=== PATIENT | male | born 1950 | race Caucasian/White ===

== ENCOUNTER 2018-04-05 11:09 | Day surgery (SDC) | payer MEDICARE, OTHER ==
[~2018-04-05] VITALS: Ht 165.1 cm; Wt 88.5 kg
[~2018-04-05 11:09] MED LIST: LISI20; NIFE30ER; OMEP20ER; SIMV40
== END 2018-04-05 13:40 | disposition home or self-care (01) ==
LOC: ORSCSDS 11:09
PROVIDERS: Surgery
PROC: 0DB58ZX Excision of Esophagus, Via Natural or Artificial Opening Endoscopic, Diagnostic (ICD-10-PCS; principal; 2018-04-05 13:00)
DX: K22.70 Barrett's esophagus without dysplasia (principal); K44.9 Diaphragmatic hernia without obstruction or gangrene; I10 Essential (primary) hypertension; E78.5 Hyperlipidemia, unspecified; F17.210 Nicotine dependence, cigarettes, uncomplicated; Z79.899 Other long term (current) drug therapy
CPT/HCPCS: 88305; J0330; J1980; J2405; J7120

== ENCOUNTER 2019-02-15 03:06 | Emergency (ER) | payer MEDICARE, OTHER ==
[~2019-02-15] VITALS: Ht 165.1 cm; Wt 91.6 kg
[2019-02-15] MEDS ORDERED: AZIT250 PO (03:28)
[2019-02-15] MEDS ORDERED: PRED5 PO (03:29)
[2019-02-15 04:11] LABS: BASOPHILS ABSOLUTE AUTO 0.02 K/mm3 (0.00-0.23); BASOPHILS PERCENT AUTO 0 % (0-2); EOSINOPHILS ABSOLUTE AUTO 0.11 K/mm3 (0.00-0.68); EOSINOPHILS PERCENT AUTO 1 % (0-6); Hematocrit 38.5 % (37.0-53.0); Hemoglobin 12.7 g/dL (13.5-17.5); IMMATURE GRAN ABSOLUTE AUTO 0.05 K/mm3 (0.00-0.10); IMMATURE GRAN PERCENT AUTO 0 % (0-1); LYMPHOCYTES ABSOLUTE AUTO 3.92 K/mm3 (0.84-5.20); LYMPHOCYTES PERCENT AUTO 31 % (21-46); MONOCYTES ABSOLUTE AUTO 1.31 K/mm3 (0.16-1.47); MONOCYTES PERCENT AUTO 11 % (4-13); Mean Platelet Volume 10.7 fL (9.1-12.4); NEUTROPHILS ABSOLUTE AUTO 7.07 K/mm3 (1.96-9.15); NEUTROPHILS PERCENT AUTO 57 % (41-73); Platelet Count 214 K/mm3 (150-400); RDW Coefficient Variation 13.4 % (11.7-14.2); RDW Standard Deviation 46.1 fL (35.1-46.3); White Blood Cell Count 12.48 K/mm3 (4.00-11.30)
[2019-02-15 04:15] LABS: Mean Corpuscular Volume 94 fL (80-100)
[2019-02-15 04:29] LABS: Albumin, Blood 3.6 g/dL (3.4-5.0); Bilirubin, Total 0.2 mg/dL (0.1-1.0); Bun/Creatinine Ratio 12.2 (12.0-20.0); Calcium, Blood 8.5 mg/dL (8.5-10.1); Creatinine, Blood 1.31 mg/dL (0.60-1.20); Globulin, Blood 3.5 g/dL (2.2-4.0); Potassium, Blood 4.5 mmol/L (3.5-5.5); Total Protein, Blood 7.1 g/dL (6.4-8.2)
[2019-02-15] MEDS ORDERED: CYCL10 PO (04:44)
[2019-02-15] MEDS ORDERED: BENZ100A PO (04:44)
== END 2019-02-15 05:10 | disposition home or self-care (01) ==
LOC: ER 03:06
PROVIDERS: Emergency Medicine
DX: S39.011A Strain of muscle, fascia and tendon of abdomen, initial encounter (principal); X58.XXXA Exposure to other specified factors, initial encounter; Z88.0 Allergy status to penicillin; Z88.8 Allergy status to other drugs, medicaments and biological substances; Z79.899 Other long term (current) drug therapy; F17.210 Nicotine dependence, cigarettes, uncomplicated
CPT/HCPCS: 36415; 71046; 80053; 83690; 85025; 96374; 96375; 99283-25; J1885; J3010

== ENCOUNTER 2019-04-15 02:44 | Emergency (ER) | payer MEDICARE, OTHER ==
[~2019-04-15] VITALS: Ht 165.1 cm; Wt 86.2 kg
[~2019-04-15 02:44] MED LIST changes: +AZIT250 PO; +BENZ100A PO; +CYCL10 PO; +PRED5 PO
[2019-04-15 03:29] LABS: BASOPHILS ABSOLUTE AUTO 0.03 K/mm3 (0.00-0.23); BASOPHILS PERCENT AUTO 0 % (0-2); EOSINOPHILS ABSOLUTE AUTO 0.31 K/mm3 (0.00-0.68); EOSINOPHILS PERCENT AUTO 4 % (0-6); Hemoglobin 12.3 g/dL (13.5-17.5); IMMATURE GRAN ABSOLUTE AUTO 0.02 K/mm3 (0.00-0.10); IMMATURE GRAN PERCENT AUTO 0 % (0-1); LYMPHOCYTES ABSOLUTE AUTO 2.23 K/mm3 (0.84-5.20); LYMPHOCYTES PERCENT AUTO 29 % (21-46); MONOCYTES PERCENT AUTO 10 % (4-13); Mean Corpuscular HGB 31.4 pg (26.0-34.0); Mean Corpuscular HGB Conc 32.4 g/dL (31.5-36.5); Mean Corpuscular Volume 97 fL (80-100); Mean Platelet Volume 11.2 fL (9.1-12.4); NEUTROPHILS ABSOLUTE AUTO 4.44 K/mm3 (1.96-9.15); NEUTROPHILS PERCENT AUTO 57 % (41-73); Platelet Count 182 K/mm3 (150-400); RDW Coefficient Variation 14.1 % (11.7-14.2); RDW Standard Deviation 50.7 fL (35.1-46.3); Red Blood Cell Count 3.92 M/mm3 (4.30-5.90); White Blood Cell Count 7.83 K/mm3 (4.00-11.30)
[2019-04-15 03:46] LABS: Albumin, Blood 3.6 g/dL (3.4-5.0); Bilirubin, Total 0.3 mg/dL (0.1-1.0); Bun/Creatinine Ratio 14.8 (12.0-20.0); Calcium, Blood 8.3 mg/dL (8.5-10.1); Creatinine, Blood 1.55 mg/dL (0.60-1.20); Globulin, Blood 3.6 g/dL (2.2-4.0); Potassium, Blood 4.8 mmol/L (3.5-5.5); Total Protein, Blood 7.2 g/dL (6.4-8.2)
[2019-04-15] MEDS ORDERED: Voltaren100 GM TOP (05:17)
[2019-04-15] MEDS ORDERED: LIDO700A20 TOP (05:17)
[2019-04-15 05:19] LABS: Source, Urine Clean Catch
[2019-04-15 05:21] LABS: Bilirubin, Urine Neg (Neg); Blood, Urine Neg (Neg); Glucose Qualitative, Urine Neg (Neg); Ketones, Urine Neg (Neg); Leukocyte Esterase, Urine Neg (Neg); Nitrite, Urine Neg (Neg); Protein, Urine 1+ (Neg); Urobilinogen, Urine NORM (Normal); pH, Urine 6.5 (5.0-8.0)
[2019-04-15 05:47] LABS: Appearance, Urine Clear (Clear); Color, Urine Yellow (P-Yellow)
== END 2019-04-15 06:00 | disposition home or self-care (01) ==
LOC: ER 02:44
PROVIDERS: Emergency Medicine
DX: R10.11 Right upper quadrant pain (principal); Z88.0 Allergy status to penicillin; Z88.8 Allergy status to other drugs, medicaments and biological substances; Z79.899 Other long term (current) drug therapy; I10 Essential (primary) hypertension; F17.200 Nicotine dependence, unspecified, uncomplicated
CPT/HCPCS: 36415; 74177; 80053; 83690; 85025; 96374-59; 96375; 99284-25; A9270; J1170; J1885; Q9967

== ENCOUNTER 2020-04-28 09:57 | Day surgery (SDC) | payer MEDICARE, OTHER ==
[~2020-04-28] VITALS: Ht 165.1 cm; Wt 89.4 kg
[~2020-04-28 09:57] MED LIST changes: +LIDO700A20 TOP; +Voltaren100 GM TOP
== END 2020-04-28 11:20 | disposition home or self-care (01) ==
LOC: ORSCSDS 09:57
PROVIDERS: Surgery
PROC: 0DB58ZX Excision of Esophagus, Via Natural or Artificial Opening Endoscopic, Diagnostic (ICD-10-PCS; principal; 2020-04-28 11:15)
DX: K22.70 Barrett's esophagus without dysplasia (principal); K21.9 Gastro-esophageal reflux disease without esophagitis; I10 Essential (primary) hypertension; F17.210 Nicotine dependence, cigarettes, uncomplicated; Z79.899 Other long term (current) drug therapy
CPT/HCPCS: 88305; J2704; J7120

== ENCOUNTER 2021-01-26 09:00 | Day surgery (SDC) | payer MEDICARE, OTHER ==
[~2021-01-26] VITALS: Ht 162.6 cm; Wt 93.3 kg
--- NOTE | 2021-01-26 10:01 | NUR ---
01/26/21 1001 Amna Bobby 1 TRY RIGHT WRIST VALVE
--- NOTE | 2021-01-26 11:24 | NUR ---
01/26/21 1124 Mei Lubin PT REFUSED MULTIPLE OFFERS OF PO FLUIDS
== END 2021-01-26 11:24 | disposition home or self-care (01) ==
LOC: ORSCSDS 09:00
PROVIDERS: Surgery
PROC: 0DBM8ZX Excision of Descending Colon, Via Natural or Artificial Opening Endoscopic, Diagnostic (ICD-10-PCS; principal; 2021-01-26 10:30)
DX: Z12.11 Encounter for screening for malignant neoplasm of colon (principal); Z86.010 Personal history of colon polyps; D12.4 Benign neoplasm of descending colon; K22.70 Barrett's esophagus without dysplasia; I10 Essential (primary) hypertension; E78.5 Hyperlipidemia, unspecified; E66.9 Obesity, unspecified; Z68.34 Body mass index [BMI] 34.0-34.9, adult; F17.210 Nicotine dependence, cigarettes, uncomplicated; Z79.899 Other long term (current) drug therapy
CPT/HCPCS: 88305; J2704; J7120

== ENCOUNTER 2022-09-27 22:15 | Emergency (ER) | payer MEDICARE, BC ==
[~2022-09-27] VITALS: Ht 167.6 cm; Wt 103.4 kg
== END 2022-09-27 23:49 | disposition home or self-care (01) ==
LOC: ER 22:15
DX: S83.92XA Sprain of unspecified site of left knee, initial encounter (principal); W01.0XXA Fall on same level from slipping, tripping and stumbling without subsequent striking against object, initial encounter; I10 Essential (primary) hypertension; E78.00 Pure hypercholesterolemia, unspecified; F17.210 Nicotine dependence, cigarettes, uncomplicated; Z88.0 Allergy status to penicillin; Z88.8 Allergy status to other drugs, medicaments and biological substances; Z79.899 Other long term (current) drug therapy
CPT/HCPCS: 73562-LT

== ENCOUNTER 2022-10-01 12:57 | Emergency (ER) | payer MEDICARE, BC ==
[~2022-10-01] VITALS: Ht 165.1 cm; Wt 99.8 kg
[2022-10-01] MEDS ORDERED: TRAM50 (16:20)
== END 2022-10-01 16:05 | disposition home or self-care (01) ==
LOC: ER 12:57
DX: M25.562 Pain in left knee (principal); W18.30XA Fall on same level, unspecified, initial encounter; I10 Essential (primary) hypertension; F17.200 Nicotine dependence, unspecified, uncomplicated; Z79.899 Other long term (current) drug therapy; Z88.0 Allergy status to penicillin; Z88.8 Allergy status to other drugs, medicaments and biological substances
CPT/HCPCS: 99283

== ENCOUNTER → 2024-11-01 | Outpatient (CLI) | payer MEDICARE, OTHER ==
[~2024-11-01] MED LIST changes: +TRAM50
== END ==
LOC: LAB 17:42 → LAB SHORT 17:42
DX: R31.9 Hematuria, unspecified (principal)
CPT/HCPCS: 87086